=== PATIENT | male | born 1960 | race Caucasian/White ===

== ENCOUNTER 2017-12-15 09:10 | Emergency (ER) | payer OTHER, SELFPAY ==
[2017-12-15] MEDS ORDERED: Nitroglycerin 0.4 MG TAB (25 Tab Bottle) ONE (09:20)
[2017-12-15 09:35] LABS: #Basophils 0.1 thou/uL (0.0-0.2); #Eosinphils 0.3 thou/uL (0.0-0.7); #Lymphocytes 1.7 thou/uL (1.20-3.40); #Monocytes 0.7 thou/uL (0.11-0.59); #Neutrophils 5.9 thou/uL (1.40-6.50); %Basophils 1.1 % (0.0-1.0); %Eosinophils 3.7 % (0.0-10.0); %Lymphocytes 19.9 % (28.0-48.0); %Monocytes 7.9 % (0.0-4.0); %Neutrophils 67.3 % (31.0-61.0); Mean Corpuscular Hemoglobin 29.6 pg (25.0-35.0); Mean Corpuscular Volume 89.7 fl (77.0-87.0); Mean Platelet Volume 7.3 fL (7.4-10.4); Platelet Count 238 thou/uL (130-400); Red Blood Cell (RBC) Count 4.73 mill/uL (4.00-5.20); White Blood Cell (WBC) Count 8.7 thou/uL (4.8-10.8)
[2017-12-15 09:36] LABS: Base Excess -6.2 mEq/L (-2 - +2); Hemoglobin (Hb) 14.9 g/dL (13.2-17.3); pH (venous) 7.29 (7.35-7.45)
[2017-12-15 09:48] LABS: ALT (SGPT) 21 U/L (8-55); AST (SGOT) 16 U/L (5-34); Albumin 4.2 g/dL (3.5-5.0); Alkaline Phosphatase 108 U/L (40-150); Anion Gap 15 mmol/L (10-20); BUN (Urea Nitrogen) 16 mg/dL (8.4-25.7); Bilirubin, Total 1.3 mg/dL (0.2-1.2); CK (CPK) 96 U/L (30-200); Calc. Creatinine Clearance 0 mL/min (70-130); Carbon Dioxide 17 mmol/L (22-29); Chloride 114 mmol/L (98-107); Estimated GFR-MDRD 77; Globulin 3.1 g/dL (2.4-3.5); Glucose 228 mg/dL (70-105); Lipase 11 U/L (8-78); Protein, Total 7.3 g/dL (6.0-8.3); Sodium 142 mmol/L (136-145)
[2017-12-15 09:49] LABS: CKMB 2.3 ng/mL (0-6.6); Troponin I 0.022 ng/mL (< 0.028)
[2017-12-15] MEDS ORDERED: Furosemide 40 MG/4 ML VIAL ONE (10:10)
--- NOTE | 2017-12-15 11:59 | RAD ---
AP CHEST: Indication: History of difficulty breathing around 2 a.m. this morning with chest pain. FINDINGS: There is cardiomegaly with pulmonary vascular congestion and perihilar edema. There is a small bilate ral pleural effusion, left greater than right. No pneumothorax evident. IMPRESSION: Findings suspicious for CHF or volume overload. POS: [facility]
== END 2017-12-15 10:45 | disposition short-term general hospital (02) ==
LOC: BURERS 09:10 → EDBD 09:10 → BURERS 10:45
DX: I11.0 Hypertensive heart disease with heart failure (principal); I50.9 Heart failure, unspecified; E10.9 Type 1 diabetes mellitus without complications; E78.5 Hyperlipidemia, unspecified; F17.210 Nicotine dependence, cigarettes, uncomplicated
CPT/HCPCS: 36416; 71045; 80053; 82550; 82553; 82805; 83690; 83880; 84484; 85025; 93005; 94760; 96374; J1940; J7620